=== PATIENT | male | born 1970 | race Caucasian/White ===

== ENCOUNTER 2021-02-11 19:09 | Emergency (ER) | payer OTHER ==
[~2021-02-11] VITALS: Ht 182.9 cm; Wt 104.3 kg
[2021-02-11 20:14] LABS: ABSOLUTE EOSINOPHILS 0.2 thou/uL (0.0-0.7); ABSOLUTE LYMPHOCYTES 1.9 thou/uL (0.8-5.3); ABSOLUTE MONOCYTES 0.6 thou/uL (0.0-1.2); BASOPHILS 0.8 %; EOSINOPHILS 3.1 %; HEMATOCRIT 42.9 % (42.0-52.0); HEMOGLOBIN 14.6 gm/dL (14.0-18.0); MCH 31.1 pg (26.0-34.0); MCV 91.4 fL (80.0-100.0); MONOCYTES 10.9 %; MPV 9.3 fl. (7.2-11.1); NUCLEATED RBCS 0 /100WBC; PLATELET COUNT* 212 thou/uL (150-400); POLYS 52.2 %; RBC 4.69 mil/uL (4.50-6.00); RDW-CV 12.5 % (10.5-14.5); WBC 5.8 thou/uL (4.0-11.0)
[2021-02-11 20:20] LABS: CALCIUM 8.5 mg/dL (8.5-10.1); POTASSIUM 3.7 mmol/L (3.5-5.1)
[2021-02-11 20:31] LABS: ALBUMIN 3.9 g/dL (3.4-5.0); TOTAL BILIRUBIN 0.4 mg/dL (<0.1-1.0); TOTAL PROTEIN 6.9 g/dL (6.4-8.2)
[2021-02-11] MEDS ORDERED: HYDROCHLOROTH12.5 M2 PO (22:32)
[2021-02-11] MEDS ORDERED: LISINOPRIL5 MG PO (22:32)
[2021-02-11 23:04] VITALS: BP 137/104
--- NOTE | 2021-02-12 11:12 | EKG ---
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[place] : 1970 Requested By: Tawnya Ramirez Order Number: [id number] MD: Pete Andrews Measurements Intervals [place] Rate: 83 P: 13 RI: 164 QRS: 39 QRSD: 97 T: -22 QT: 389 QTc: 457 Interpretive Statements Sinus rhythm Nonspecific T abnormalities, inferior leads Artifact in lead(s) II,III,aVF,V3 and baseline wander in lead(s) V3,V4,V5,V6 No previous ECG available for comparison Electronically Signed On 02-12-2021 11:12:00 CDT by Pete Andrews [email or web address] <ELECTRONICALLY SIGNED> By: Pete Andrews MD, [facility] 02/12/21 1112 12 12 Pete Andrews MD, FAC /EPI
== END 2021-02-11 23:04 | disposition home or self-care (01) ==
LOC: M.ERS 19:09
PROVIDERS: Personal Emergency Response Attendant
DX: I16.0 Hypertensive urgency (principal); Z90.49 Acquired absence of other specified parts of digestive tract